=== PATIENT | male | born 1930 | race Caucasian/White ===

== ENCOUNTER 2018-10-30 10:45 | Day surgery (SDC) | payer MEDICARE, OTHER ==
[~2018-10-30] VITALS: Ht 180.3 cm; Wt 78.1 kg
[~2018-10-30 10:45] MED LIST: HCTZ 25MG TAB25 MG PO; ULTRAM 50MG TAB50 MG PO
[2018-10-30 11:39] LABS: POTASSIUM 4.3 mmol/L (3.4-5.0)
[2018-10-30 11:40] LABS: PROTHROMBIN TIME 11.8 SECONDS (9.7-12.8)
[2018-10-30 12:14] LABS: THYROID STIMULATING HORMONE 2.28 uIU/mL (0.465-4.680)
[2018-10-30] MEDS ORDERED: VITAMINC1000TA PO (12:25)
[2018-10-30] MEDS ORDERED: PRILOSEC 20MG20 MG PO (12:25)
[2018-10-30] MEDS ORDERED: PRESERVISION1 SGL PO (12:25)
[2018-10-30] MEDS ORDERED: CORRECTIVE LAXAT5 MG PO (12:26)
[2018-10-30] MEDS ORDERED: IRON TABLETS325 MG PO (12:27)
[2018-10-30] MEDS ORDERED: ASPIRIN 81M81 MG/TA2 PO (12:27)
[2018-10-30] MEDS ORDERED: LASIX 40MG TABL40 MG PO (12:28)
[2018-10-30] MEDS ORDERED: CENTRUM1 TA1 PO (12:28)
[2018-10-30] MEDS ORDERED: COZAAR 50MG50 MG/TAB PO (12:29)
[2018-10-30] MEDS ORDERED: TOPROL XL 50MG50 MG PO (12:31)
[2018-10-30] MEDS ORDERED: K-TAB20 PO (12:32)
[2018-10-30] MEDS ORDERED: TYLENOL 325MG325 MG PO (12:33)
[2018-10-30 12:51] VITALS: BP 146/78; PULSE 70; TEMP 97.8
--- NOTE | 2018-10-30 13:50 | NUR ---
Procedure cancelled per Dr Adams.
--- NOTE | 2018-10-30 14:52 | NUR ---
Procedure cancelled.Discharge instructions given to pt.Pt verbalizes understanding.INT removed,catheter tip intact.
== END 2018-10-30 14:53 | disposition home or self-care (01) ==
LOC: COL.CAR 10:45
PROVIDERS: Internal Medicine Interventional Cardiology
DX: I48.0 Paroxysmal atrial fibrillation (principal); I10 Essential (primary) hypertension; M19.019 Primary osteoarthritis, unspecified shoulder; R26.81 Unsteadiness on feet; Z91.81 History of falling; Z85.46 Personal history of malignant neoplasm of prostate; Z79.899 Other long term (current) drug therapy; Z79.82 Long term (current) use of aspirin
CPT/HCPCS: J2704; J7030